=== PATIENT | female | born 1970 | race African-American/Black ===

== ENCOUNTER 2017-02-15 20:50 | Emergency (ER) | payer OTHER ==
[2017-02-15] MEDS ORDERED: Octyl 2-Cyanoacrylate 1 Tube TOP ONE (21:08)
--- NOTE | 2017-02-15 21:16 | EDM.PDOC ---
ED HPI GENERAL MEDICAL PROBLEM - General Chief Complaint: Laceration Stated Complaint: PT CUT LT INDEX FINGER Time Seen by Provider: 02/15/17 21:05 Source of Information: Reports: Patient History Limitations: Reports: No Limitations - History of Present Illness INITIAL COMMENTS - FREE TEXT/NARRATIVE: HISTORY AND PHYSICAL: History of present illness: [Pt comes to the ER complaining of a laceration to the top of her left hand, just proximal to the joint of the index finger. She complains of minimal pain, and bleeding and swelling. She was cutting a package open with a small knife slipped cutting into her hand. Her last tetanus shot was earlier in 2017. ] Review of systems: As per history of present illness and below otherwise all systems reviewed and negative. Past medical history: As per history of present illness and as reviewed below otherwise noncontributory. Surgical history: As per history of present illness and as reviewed below otherwise noncontributory. Social history: No reported history of drug or alcohol abuse. Family history: As per history of present illness and as reviewed below otherwise noncontributory. Physical exam: HEENT: Atraumatic, normocephalic. Extremities: 1cm superficial linear laceration to dorsum of L hand, just below the joint of the index finger. Neurovascular unremarkable. Neuro: Awake, alert, oriented. Motor and sensory unremarkable throughout. Exam nonfocal. Impression: [Laceration to L hand] Plan: [] Definitive disposition and diagnosis as appropriate pending reevaluation and review of above. left 1 digit knuckle Pain Score (Numeric/FACES): 10 - Related Data Allergies Allergy/AdvReac Type Severity Reaction Status Date / Time metoprolol [From Lopressor] Allergy Bradycardia Verified 02/15/17 20:58 ED ROS GENERAL - Review of Systems Review Of Systems: ROS reveals no pertinent complaints other than HPI. ED EXAM, SKIN/RASH Exam: See Below ED SKIN PROCEDURES - Laceration/Wound Repair Right Proximal Dorsal Hand Lac/wound length in cm: 1 Appearance: superficial Distal NVT: neuro & vascular intact, no tendon injury Skin prep: chlorhexidine (hibiciens), saline Exploration/Debridement/Repair: wound explored, no foreign material found Closed with: dermabond, steri-strips Course - Vital Signs Last Recorded V/S: Last Vital Signs Temp 98.1 F 05/13/17 21:00 Pulse 100 02/15/17 21:00 Resp 20 02/15/17 21:00 BP 135/87 02/15/17 21:00 Pulse Ox 95 02/15/17 21:00 - Orders/Labs/Meds Meds: Medications Discontinued Medications Generic Name Dose Route Start Last Admin Trade Name Manish PRN Reason Stop Dose Admin Octyl Cyanoacrylate 1 applic 02/15/17 21:08 Dermabond Advance TOP 02/15/17 21:09 ONETIME ONE Departure - Departure Time of Disposition: 21:15 Disposition: Home, Self-Care 01 Condition: good Clinical Impression: Laceration of hand Qualifiers: Encounter type: initial encounter Foreign body presence: without foreign body Laterality: left Qualified Code(s): S61.412A - Laceration without foreign body of left hand, initial encounter - Discharge Information Forms: ED Department Discharge Additional Instructions: The following information is given to patients seen in the emergency department who are being discharged to home. This information is to outline your options for follow-up care. We provide all patients seen in our emergency department with a follow-up referral. The need for follow-up, as well as the timing and circumstances, are variable depending upon the specifics of your emergency department visit. If you don't have a primary care physician on staff, we will provide you with a referral. We always advise you to contact your personal physician following an emergency department visit to inform them of the circumstance of the visit and for follow-up with them and/or the need for any referrals to a consulting specialist. The emergency department will also refer you to a specialist when appropriate. This referral assures that you have the opportunity for follow-up care with a specialist. All of these measure are taken in an effort to provide you with optimal care, which includes your follow-up. Under all circumstances we always encourage you to contact your private physician who remains a resource for coordinating your care. When calling for follow-up care, please make the office aware that this follow-up is from your recent emergency room visit. If for any reason you are refused follow-up, please contact the [facility] emergency department at and asked to speak to the emergency department charge nurse. [facility] [address] [place] [id number] Follow up with her local primary care provider at the clinic stated above in 48- 72 hours. Tylenol or ibuprofen as needed for discomfort. May use ice as needed for swelling. Return to ER as needed as discussed.
[2017-02-15 21:30] VITALS: BP 131/84
== END 2017-02-15 21:29 | disposition home or self-care (01) ==
LOC: MW.ED 20:50
DX: S61.211A Laceration without foreign body of left index finger without damage to nail, initial encounter (principal); Z88.8 Allergy status to other drugs, medicaments and biological substances; W26.0XXA Contact with knife, initial encounter
CPT/HCPCS: 12001; 99282; A9270